=== PATIENT | female | born 1945 | race Caucasian/White ===

== ENCOUNTER 2023-08-04 09:24 | Day surgery (SDC) | payer OTHER, MEDICARE ==
[2023-07-28 12:48] VITALS: BMI 23.0
[2023-08-04 11:49] VITALS: BP 118/71; PULSE 74; RESP 16; TEMP 97.9
== END 2023-08-04 12:04 | disposition home or self-care (01) ==
LOC: FASU-ENDO 09:24
PROVIDERS: ATTEND Internal Medicine Gastroenterology
PROC: 0DB68ZX Excision of Stomach, Via Natural or Artificial Opening Endoscopic, Diagnostic (ICD-10-PCS; 2023-08-04)
PROC: 0DB48ZX Excision of Esophagogastric Junction, Via Natural or Artificial Opening Endoscopic, Diagnostic (ICD-10-PCS; 2023-08-04)
PROC: 0DB98ZX Excision of Duodenum, Via Natural or Artificial Opening Endoscopic, Diagnostic (ICD-10-PCS; principal; 2023-08-04 11:24)
DX: K31.7 Polyp of stomach and duodenum (principal); K31.89 Other diseases of stomach and duodenum; R10.13 Epigastric pain
CPT/HCPCS: 88305-TC; 88342-TC